=== PATIENT | male | born 1995 | race Caucasian/White ===

== ENCOUNTER 2021-07-03 09:51 | Emergency (ER) | payer SELFPAY ==
[2021-07-03] MEDS ORDERED: Bupivacaine PF 0.5% 30 ML VIAL ONE (10:28)
== END 2021-07-03 12:56 | disposition home or self-care (01) ==
LOC: CSHERS 09:51
DX: S60.445A External constriction of left ring finger, initial encounter (principal); J45.909 Unspecified asthma, uncomplicated; F17.200 Nicotine dependence, unspecified, uncomplicated; W49.04XA Ring or other jewelry causing external constriction, initial encounter
CPT/HCPCS: 99283; S0020

== ENCOUNTER 2023-11-21 22:10 | Emergency (ER) | payer SELFPAY ==
[2023-11-21] MEDS ORDERED: methylPREDNISolone Sod Succ/PF 125 MG/2 ML VIAL ONE (23:04)
[2023-11-21] MEDS ORDERED: Famotidine/PF 20 mg/2ml Vial ONE (23:05)
== END 2023-11-22 00:23 | disposition home or self-care (01) ==
LOC: CSHERS 22:10
DX: L42 Pityriasis rosea (principal); F17.210 Nicotine dependence, cigarettes, uncomplicated
CPT/HCPCS: 96374; 96375; J2930; S0028

== ENCOUNTER 2024-02-25 22:02 | Emergency (ER) | payer SELFPAY | END 2024-02-25 23:50 | disposition home or self-care (01) | LOC: CSHERS 22:02 | DX: S46.911A Strain of unspecified muscle, fascia and tendon at shoulder and upper arm level, right arm, initial encounter (principal); F17.210 Nicotine dependence, cigarettes, uncomplicated; X58.XXXA Exposure to other specified factors, initial encounter ==

== ENCOUNTER 2025-04-25 18:37 | Emergency (ER) | payer OTHER ==
[2025-04-25] MEDS ORDERED: predniSONE 20 MG TAB ONE (19:44)
[2025-04-25] MEDS ORDERED: Benzonatate 100 MG CAP ONE (19:44)
== END 2025-04-25 20:27 | disposition home or self-care (01) ==
LOC: CSHERS 18:37
DX: J40 Bronchitis, not specified as acute or chronic (principal); F17.210 Nicotine dependence, cigarettes, uncomplicated
CPT/HCPCS: 71045; 87428; 93005; J7512